=== PATIENT | female | born 1955 | race Asian ===

== ENCOUNTER → 2024-11-21 12:46 | Outpatient (REF) | payer MEDICARE, OTHER, SELFPAY | LOC: HWEVLT 12:46 | PROVIDERS: ATTENDING PHYSICIAN Radiology Vascular & Interventional Radiology | DX: I83.893 Varicose veins of bilateral lower extremities with other complications (principal) | CPT/HCPCS: 93970 ==

== ENCOUNTER → 2025-01-14 08:07 | Outpatient (REF) | payer MEDICARE, OTHER, SELFPAY | LOC: HWEVLT 08:07 | PROVIDERS: ATTENDING PHYSICIAN Radiology Vascular & Interventional Radiology | DX: I83.892 Varicose veins of left lower extremity with other complications (principal) | CPT/HCPCS: 36478; C1769 ==

== ENCOUNTER → 2025-01-30 09:07 | Outpatient (REF) | payer MEDICARE, OTHER, SELFPAY | LOC: HWEVLT 09:07 | PROVIDERS: ATTENDING PHYSICIAN Radiology Vascular & Interventional Radiology | DX: I83.892 Varicose veins of left lower extremity with other complications (principal) | CPT/HCPCS: 93971 ==